=== PATIENT | female | born 1995 | race Caucasian/White ===

== ENCOUNTER 2017-09-16 09:49 | Emergency (ER) | payer OTHER ==
[2017-09-16 10:44] VITALS: BP 122/58
--- NOTE | 2017-09-16 11:04 | UC ---
Shoulder Pain HPI - HPI Summary HPI Summary: right shoulder pain above scapula that radiates in to neck should muscles feel stiff - History of Current Complaint Chief Complaint: UCUpperExtremity Stated Complaint: RT SHOULDER PAIN Time Seen by Provider: 09/16/17 10:54 Hx Obtained From: Patient Hx Last Menstrual Period: had a baby 3 mos ago, no menses yet, on B/C ?: No Onset/Duration: Sudden Onset, Lasting Days, Still Present - trouble finding a comfortable position to sleep in Timing: Constant Severity Initially: Moderate Severity Currently: Moderate Location Of Pain: Is Discrete @ Character: Spasmodic, Stiffness Aggravating Factor(s): Movement, Lifting Alleviating Factor(s): Rest Associated Signs And Symptoms: Positive: Negative Related History: Dominant Hand Right - Allergies/Home Medications Allergies/Adverse Reactions: Allergies Allergy/AdvReac Type Severity Reaction Status Date / Time Penicillins Allergy Intermediate Hives Verified 09/16/17 10:44 Home Medications: Home Medications Levonorgestrel (Iud) [Mirena IUD] 20 mcg IU DAILY 09/16/17 [History Confirmed ] Vit W/ Docusate-Fe Fu [ 19] 1 tab PO DAILY 09/16/17 [History Confirmed 09/16/17] PMH/Surg Hx/FS Hx/Imm Hx Previously Healthy: Yes - Surgical History Surgical History: Yes Surgery Procedure, Year, and Place: x 2 - Family History Known Family History: Positive: None - Social History Occupation: Employed Full-time Lives: With Family Alcohol Use: None Substance Use Type: None Smoking Status (MU): Heavy Every Day Tobacco Smoker Type: Cigarettes Amount Used/How Often: 1/2 ppd Length of Time of Smoking/Using Tobacco: since age 15 Have You Smoked in the Last Year: Yes Review of Systems Constitutional: Negative Skin: Negative Eyes: Negative ENT: Negative Respiratory: Negative Cardiovascular: Negative Gastrointestinal: Negative Genitourinary: Negative Motor: Negative Neurovascular: Negative Musculoskeletal: Myalgia - right shoulder above scapula radiating in to neck Neurological: Negative Psychological: Negative Is Patient Immunocompromised?: No All Other Systems Reviewed And Are Negative: Yes Physical Exam Triage Information Reviewed: Yes Appearance: Well-Appearing, Well-Nourished, Pain Distress - mild Vital Signs: Initial Vital Signs Temp 97.7 F 09/16/17 10:34 Pulse 66 09/16/17 10:34 Resp 16 09/16/17 10:34 BP 122/58 09/16/17 10:34 Pulse Ox 100 09/16/17 10:34 Vital Signs Reviewed: Yes Eye Exam: Normal Eyes: Positive: Conjunctiva Clear ENT Exam: Normal ENT: Positive: Normal ENT inspection, Hearing grossly normal. Negative: Nasal congestion, Nasal drainage, Muffled voice, Hoarse voice Dental Exam: Normal Neck exam: Normal Neck: Positive: Supple, No Lymphadenopathy, Tenderness @ - right lateral neck Respiratory Exam: Normal Respiratory: Positive: Chest non-tender, Lungs clear, Normal breath sounds, No respiratory distress, No accessory muscle use Cardiovascular Exam: Normal Cardiovascular: Positive: RRR, No Murmur, Pulses Normal, Brisk Capillary Refill Musculoskeletal Exam: Normal Musculoskeletal: Positive: Strength Intact, ROM Intact, No Edema Neurological Exam: Normal Neurological: Positive: Alert, Muscle Tone Normal Psychological Exam: Normal Skin Exam: Normal Shoulder Course/Dx - Course Assessment/Plan: nsaid, lidoderm, muscle relaxors, ultam for more sever pain, follow with pcp/PT - Differential Dx/Diagnosis Provider Diagnoses: Right trapez. Muscle pain, nicotine dependent Discharge - Discharge Plan Condition: Stable Disposition: HOME Prescriptions: Cyclobenzaprine TAB* [Flexeril 10 MG TAB*] 10 mg PO TID PRN #15 tab PRN Reason: muscle pain Ibuprofen TAB* [Motrin TAB* 600 MG] 600 mg PO Q6H PRN #30 tab PRN Reason: pain Lidocaine PATCH 5%* [Lidoderm 5% Patch*] 1 patch TRANSDERM DAILY #15 patch traMADol TAB* [Ultram*] 50 mg PO Q6HR PRN #15 tab MDD 4 PRN Reason: pain Patient Education Materials: Muscle Strain (ED), Core Strengthening Exercises ( GEN), Shoulder Pain (ED) Referrals: Ethan Denney MD [Medical Doctor] - No Primary Care Phys,NOPCP [Primary Care Provider] -
== END 2017-09-16 11:20 | disposition home or self-care (01) ==
LOC: MERGE 09:49 → UCCORT 09:49
DX: M25.511 Pain in right shoulder (principal); Z88.0 Allergy status to penicillin; F17.210 Nicotine dependence, cigarettes, uncomplicated
CPT/HCPCS: 99202; G0463

== ENCOUNTER 2017-10-23 12:28 | Emergency (ER) | payer BC, MEDICAID, OTHER ==
[2017-10-23 12:39] VITALS: BP 134/81
[2017-10-23] MEDS ORDERED: Ibuprofen TAB* 600 MG PO ONE (15:08)
--- NOTE | 2017-10-23 15:14 | ED ---
Back Pain - HPI Summary HPI Summary: 22 female presents to ED with complaints of back pain starting at base of neck down to waist after falling down 4-5 icey steps this morning 10/23/17. Patient states she slipped and went down hitting back on every step. Admits to ferrara on back where she hit. States she is comfortable at rest however any movement and deep breaths makes her pain worse. Patient has not taken any medication and denies PMHx. No other complaints. No head injury or LOC. No abdominal pain, nausea, vomiting. No other injuries. Denies numbness/tingling of extremities, no saddle anesthesia or bladder/bowel incontinence or weakness. - History of Current Complaint Chief Complaint: EDBackInjuryPain Stated Complaint: FALL/BACK PAIN Time Seen by Provider: 10/23/17 13:21 Hx Obtained From: Patient Hx Last Menstrual Period: had a baby 3 mos ago, no menses yet, on B/C Onset/Duration: Sudden Onset, Still Present Onset/Duration: Started Hours Ago, Traumatic, Still Present Timing: Constant - with movement and deep breaths Back Pain Location: Is Discrete @ - back T1-L5 bilateral spine diffuse Severity Initially: Mild Severity Currently: Moderate Pain Intensity: 8 Pain Scale Used: 0-10 Numeric Character: Sharp, Aching, Stiffness Aggravating Symptom(s): Movement, Walking, Cough - deep breaths Alleviating Symptom(s): Rest, Position Associated Signs And Symptoms: Positive: Redness - where patient hit steps when falling. Negative: Weakness, Numbness, Tingling, Abdominal Pain, Bladder Incontinence, Bowel Incontinence, Weight Loss, Pain with Weight Bearing - Risk Factors AAA Risk Factors: Negative TAD Risk Factors: Negative Cauda Equina Risk Factors: Negative Epidural Abscess Risk Factors: Negative - Allergies/Home Medications Allergies/Adverse Reactions: Allergies Allergy/AdvReac Type Severity Reaction Status Date / Time Penicillins Allergy Unknown Hives Verified 10/23/17 15:32 PMH/Surg Hx/FS Hx/Imm Hx Endocrine/Hematology History: Denies: Hx Anticoagulant Therapy, Hx Diabetes Cardiovascular History: Denies: Hx Hypertension Respiratory History: Denies: Hx Asthma - Surgical History Surgery Procedure, Year, and Place: x 2 - Immunization History Immunizations Up to Date: Yes Infectious Disease History: No Infectious Disease History: Denies: Traveled Outside the [place] in Last 30 Days - Family History Known Family History: Positive: None - Social History Alcohol Use: None Substance Use Type: Reports: None Smoking Status (MU): Heavy Every Day Tobacco Smoker Type: Cigarettes Amount Used/How Often: 1/2 ppd Length of Time of Smoking/Using Tobacco: since age 15 Have You Smoked in the Last Year: Yes Review of Systems Constitutional: Negative Cardiovascular: Negative Respiratory: Negative Gastrointestinal: Negative Positive: Arthralgia, Myalgia, Decreased ROM - back pain Positive: Other - redness where patient hit steps Neurological: Negative All Other Systems Reviewed And Are Negative: Yes Physical Exam Triage Information Reviewed: Yes Vital Signs On Initial Exam: Initial Vitals Temp Pulse Resp BP Pulse Ox 97.7 F 82 16 134/81 100 10/23/17 12:35 10/23/17 12:35 10/23/17 12:35 10/23/17 12:35 10/23/17 12:35 Vital Signs Reviewed: Yes Appearance: Positive: Well-Appearing, Well-Nourished, Pain Distress - mild to moderate with movement and deep breaths Skin: Positive: Warm, Skin Color Reflects Adequate Perfusion, Dry, Erythema @ - at area of t7 and l2 where patient hit steps on way down, no edema, crepitus, or step off, no ecchymosis. Negative: Cold, Numb, Cyanosis @ Head/Face: Positive: Normal Head/Face Inspection Eyes: Positive: Conjunctiva Clear ENT: Positive: Hearing grossly normal Neck: Positive: Supple, Nontender. Negative: Tenderness @ Respiratory/Lung Sounds: Positive: Clear to Auscultation, Breath Sounds Present. Negative: Rales, Rhonchi, Wheezes Cardiovascular: Positive: Normal, RRR, Pulses are Symmetrical in both Upper and Lower Extremities. Negative: Murmur, Rub Abdomen Description: Positive: Nontender, Soft Bowel Sounds: Positive: Present Musculoskeletal: Positive: Normal, Strength/ROM Intact, Pain @ - on palpation of entire back t1-l5 on palpation of bilateral sides of back and some spinal tenderness diffusely., Other - no other signs of trauma besides noted above. Negative: Limited @, Interruption @, Abnormal @, Edema Left, Edema Right Neurological: Positive: Normal, Sensory/Motor Intact, Alert, Oriented to Person Place, Time, CN Intact II-III, Reflexes Intact, NV Bundle Intact Distally, Normal Gait - Brittney Coma Scale Best Eye Response: 4 - Spontaneous Best Motor Response: 6 - Obeys Commands Best Verbal Response: 5 - Oriented Coma Scale Total: 15 Diagnostics - Vital Signs Vital Signs Temp Pulse Resp BP Pulse Ox 10/23/17 12:35 97.7 F 82 16 134/81 100 - Laboratory Lab Statement: Any lab studies that have been ordered have been reviewed, and results considered in the medical decision making process. - Radiology thoracic Xray Interpretation: No Acute Changes - 1. Mild bibasilar subsegmental atelectasis likely reflecting suboptimal inspiration. 2. Negative for pneumothorax. 3. No rib fracture or fracture of the thoracic spine evident. Radiology Interpretation Completed By: Radiologist - and myself lumbosacral Xray Interpretation: No Acute Changes - UNREMARKABLE RADIOGRAPHS OF THE LUMBAR SPINE Radiology Interpretation Completed By: Radiologist - and myself jose bl ribs Xray Interpretation: No Acute Changes - 1. Mild bibasilar subsegmental atelectasis likely reflecting suboptimal inspiration. 2. Negative for pneumothorax. 3. No rib fracture or fracture of the thoracic spine evident. Radiology Interpretation Completed By: Radiologist - and myself Back Pain Course/Dx - Course Course Of Treatment: given ibuprofen for pain. xrays of entire spine and chest/ ribs obtained and negative. appears to be suffering from contusions from impact. denies any abdominal pain, nausea, vomiting. normal vitals. normal mental status and in mild discomfort. normal PE other then some areas of back on palpation. no other concerns at this time. slid down 4-5 steps. no other injuries or complaints. no other concerns for other emergent etiology at this time. Follow up wtih PCP. Aware of worsening signs and symptoms to watch out for. RICE and ibuprofen - Diagnoses Differential Diagnosis/HQI/PQRI: Positive: Fracture, Strain, Sprain, Other - rib fracture, rib contusion, back contusion, back pain/injury Provider Diagnoses: Contusion of back Discharge - Discharge Plan Condition: Stable Disposition: HOME Patient Education Materials: Acute Low Back Pain (ED), Contusion in Adults (ED) Referrals: Rayo Skinner MD [Primary Care Provider] - Additional Instructions: Continue ibuprofen as needed for pain and inflammation while symptoms persist. Apply ice and rest. Follow up with PCP. Any new or worsening symptoms please seek medical attention promptly.
--- NOTE | 2017-10-23 15:43 | RAD ---
HISTORY: Fall, trauma, back pain COMPARISONS: None VIEWS: 5 , Frontal, lateral, coned-down lateral sacral, and bilateral oblique views of the lumbar spine. FINDINGS: ALIGNMENT: The alignment is normal. VERTEBRAL BODIES: The vertebral body heights are normal. The interpedicular distances are normal. There is partial lumbarization of the S1 vertebral body. JOINTS: The facet joints are normal. INTERVERTEBRAL DISCS: The intervertebral disc heights are normal. SOFT TISSUE: Unremarkable. OTHER: The pelvis is unremarkable. The lung bases are clear. IMPRESSION: UNREMARKABLE RADIOGRAPHS OF THE LUMBAR SPINE
--- NOTE | 2017-10-23 15:44 | RAD ---
Indication: Pain post fall down stairs. Comparison: No relevant prior exams available on the [facility] PACS for comparison. Technique: Dual energy PA chest and 4 view bilateral rib series. AP and lateral radiographs of the thoracic spine including swimmer's view. Report: Mild elevation of the RIGHT hemidiaphragm and minimal bibasilar subsegmental atelectasis which may be secondary to suboptimal inspiration. The lungs and pleural spaces are otherwise clear. Negative for pneumothorax. Mild cardiomegaly. Unremarkable central pulmonary vasculature and mediastinal contours. No rib fracture evident. Normal alignment of the thoracic spine. Assessment of the lower thoracic spine is limited due to superimposed soft tissues with obese body habitus limiting assessment. Nonetheless the thoracic vertebral bodies are normal in height without gross evidence for fracture. Unremarkable intervertebral disc spaces. Unremarkable paraspinal soft tissue contours. IMPRESSION: 1. Mild bibasilar subsegmental atelectasis likely reflecting suboptimal inspiration. 2. Negative for pneumothorax. 3. No rib fracture or fracture of the thoracic spine evident.
--- NOTE | 2017-10-23 15:44 | RAD ---
Indication: Pain post fall down stairs. Comparison: No relevant prior exams available on the [facility]ACS for comparison. Technique: Dual energy PA chest and 4 view bilateral rib series. AP and lateral radiographs of the thoracic spine including swimmer's view. Report: Mild elevation of the RIGHT hemidiaphragm and minimal bibasilar subsegmental atelectasis which may be secondary to suboptimal inspiration. The lungs and pleural spaces are otherwise clear. Negative for pneumothorax. Mild cardiomegaly. Unremarkable central pulmonary vasculature and mediastinal contours. No rib fracture evident. Normal alignment of the thoracic spine. Assessment of the lower thoracic spine is limited due to superimposed soft tissues with obese body habitus limiting assessment. Nonetheless the thoracic vertebral bodies are normal in height without gross evidence for fracture. Unremarkable intervertebral disc spaces. Unremarkable paraspinal soft tissue contours. IMPRESSION: 1. Mild bibasilar subsegmental atelectasis likely reflecting suboptimal inspiration. 2. Negative for pneumothorax. 3. No rib fracture or fracture of the thoracic spine evident.
== END 2017-10-23 16:11 | disposition home or self-care (01) ==
LOC: ED 12:28
DX: S30.0XXA Contusion of lower back and pelvis, initial encounter (principal); M54.9 Dorsalgia, unspecified; W00.1XXA Fall from stairs and steps due to ice and snow, initial encounter; Y92.9 Unspecified place or not applicable
CPT/HCPCS: 71111; 72070; 72110; 99282; A9270-GY

== ENCOUNTER 2019-09-08 09:50 | Emergency (ER) | payer OTHER ==
[2019-09-08 10:10] VITALS: BP 131/63
--- NOTE | 2019-09-08 10:27 | UC ---
Complaint Female HPI - HPI Summary HPI Summary: Pt c/o sudden onset of urinary symptoms of frequency, urgency and dysuria X 1 week. - History Of Current Complaint Chief Complaint: UCGU Stated Complaint: URINARY Time Seen by Provider: 09/08/19 10:23 Hx Obtained From: Patient Hx Last Menstrual Period: "I think it was the beginning of this month." Mirena IUD ?: No Onset/Duration: Sudden Onset, Lasting Days, Still Present, Worse Since - onset Timing: Constant Severity Initially: Mild Severity Currently: Moderate Pain Intensity: 0 Character: Dull, Burning Aggravating Factor(s): Urination Alleviating Factor(s): Nothing Associated Signs And Symptoms: Positive: Negative - Risk Factors Ectopic Risk Factor: IUD Use Ovarian Torsion Risk Factor: Reproductive Age - Allergies/Home Medications Allergies/Adverse Reactions: Allergies Allergy/AdvReac Type Severity Reaction Status Date / Time oxytocin [From Pitocin] Allergy Vomiting Verified 09/08/19 10:03 Penicillins Allergy Hives Verified 09/08/19 10:03 Home Medications: Home Medications Levonorgestrel (Iud) [Mirena IUD] 20 mcg IU ONCE 09/08/19 [History Confirmed ] PMH/Surg Hx/FS Hx/Imm Hx Previously Healthy: Yes Other History Of: Negative For: Anticoagulant Therapy - Surgical History Surgical History: Yes Surgery Procedure, Year, and Place: , 2016, [place]; C-Sections, 2012, [place]; Right Wrist Ganglion Cyst, ~2005, [place] - Family History Known Family History: Positive: Cardiac Disease - Social History Occupation: Employed Full-time Lives: With Family Alcohol Use: None Substance Use Type: None Smoking Status (MU): Heavy Every Day Tobacco Smoker Type: Cigarettes Amount Used/How Often: 1/2 PPD Length of Time of Smoking/Using Tobacco: Since Age 15 Have You Smoked in the Last Year: Yes Household Exposure Type: Cigarettes - Immunization History Most Recent Tetanus Shot: 04/10/13 Vaccination Up to Date: Yes Review of Systems All Other Systems Reviewed And Are Negative: Yes Constitutional: Positive: Negative Skin: Positive: Negative Eyes: Positive: Negative ENT: Positive: Negative Respiratory: Positive: Negative Cardiovascular: Positive: Negative Gastrointestinal: Positive: Abdominal Pain - pelvic pressure Genitourinary: Positive: Dysuria, Frequency, Urgency Motor: Positive: Negative Neurovascular: Positive: Negative Musculoskeletal: Positive: Negative Neurological: Positive: Negative Psychological: Positive: Negative Is Patient Immunocompromised?: No Physical Exam Triage Information Reviewed: Yes Appearance: Well-Appearing Vital Signs: Initial Vital Signs Temp 98.6 F 09/08/19 10:00 Pulse 88 09/08/19 10:00 Resp 18 09/08/19 10:00 BP 131/63 09/08/19 10:00 Pulse Ox 99 09/08/19 10:00 Vital Signs Reviewed: Yes Eye Exam: Normal ENT Exam: Normal Dental Exam: Normal Neck exam: Normal Respiratory Exam: Normal Cardiovascular Exam: Normal Abdominal Exam: Normal Abdomen Description: Positive: Nontender Musculoskeletal Exam: Normal Neurological Exam: Normal Psychological Exam: Normal Skin Exam: Normal Complaint Female Dx - Differential Dx/Diagnosis Differential Diagnosis/HQI/PQRI: Ureteral Stone, Urinary Tract Infection Provider Diagnosis: UTI (urinary tract infection) Discharge ED - Sign-Out/Discharge Documenting (check all that apply): Patient Departure All imaging exams completed and their final reports reviewed: No Studies - Discharge Plan Condition: Stable Disposition: HOME Prescriptions: Nitrofurantoin Monohyd/M-Cryst [Macrobid 100 mg Capsule] 100 mg PO Q12H #14 cap Phenazopyridine TAB* [Pyridium 100 mg TAB*] 100 mg PO Q8H #3 tab Patient Education Materials: Urinary Tract Infection in Women (ED) Referrals: Rayo Skinner MD [Primary Care Provider] - If Needed - Billing Disposition and Condition Condition: STABLE Disposition: Home
== END 2019-09-08 10:32 | disposition home or self-care (01) ==
LOC: UCCORT 09:50
DX: N39.0 Urinary tract infection, site not specified (principal); F17.210 Nicotine dependence, cigarettes, uncomplicated; Z88.8 Allergy status to other drugs, medicaments and biological substances; Z88.0 Allergy status to penicillin
CPT/HCPCS: 81003; 87077; 87086; 87186; 99212; G0463